=== PATIENT | female | born 1990 | race Caucasian/White ===

== ENCOUNTER 2023-04-09 11:12 | Inpatient (IN) ==
[2023-04-09] MEDS ORDERED: SODIUM CHLORIDE 0.9% 1000ML 1,000 ML IV SCH (11:45)
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
[2023-04-09 12:02] LABS: Basophils # (auto) 0.06 K/uL (0-0.2); Eosinophils # (auto) 0.19 K/uL (0-0.50); Eosinophils % (auto) 3.3 %; Hematocrit (blood only) 38.8 % (37.0-47.0); Hemoglobin 12.9 g/dl (12.0-16.0); Immature Granulocytes # (auto) 0.01 K/uL (0.01-0.20); Immature Granulocytes % (auto) 0.2 %; Lymphocytes # (auto) 1.13 K/uL (1.2-3.4); Lymphocytes % (auto) 19.5 %; Mean Corpuscular Hgb Conc 33.2 g/dL (32.0-36.0); Mean Corpuscular Volume 90.2 fL (80.0-100.0); Mean Platelet Volume 9.5 fL (9.4-12.4); Monocytes # (auto) 0.54 K/uL (0.11-0.59); Monocytes % (auto) 9.3 %; Neutrophils # (auto) 3.87 K/uL (1.40-6.50); Neutrophils % (auto) 66.7 %; Platelet Count 368 K/uL (130-400); RDW Coefficient of Variation 12.4 % (11.5-14.5); RDW Standard Deviation 40.7 fL (36.4-46.3)
[2023-04-09 12:06] LABS: iSTAT Creatinine 0.6 mg/dl (0.6-1.3); iSTAT Hemoglobin 13.6 g/dl (12.0-16.0); iSTAT Ionized Calcium 1.19 mmol/l (1.12-1.32); iSTAT Potassium 4.1 mmol/L (3.3-5.0)
[2023-04-09 12:19] LABS: Albumin Globulin Ratio 1.3 (0.9-2); Albumin Level 4.2 gm/dl (3.4-5.0); BUN Creatinine Ratio 13.4 (10-20); Bilirubin,Total 0.3 mg/dl (0.2-1.0); Creatinine Clr Calc Pharmacy 115.9 ml/min; Est GFR (African American) 133.9 ml/min; Est GFR (Non-African American) 115.5 ml/min; Globulin 3.2 gm/dl (2.5-4.0); Magnesium 1.9 mg/dl (1.7-2.4); Total Protein 7.4 gm/dl (6.0-8.3)
[2023-04-09 12:25] LABS: Troponin I High Sensitivity 9.2 pg/ml (0-14)
[2023-04-09] MEDS ORDERED: OPTIRAY 320 500ml IV ONE (12:29)
[2023-04-09 12:33] LABS: INR 0.9 (0.9-1.1); Partial Thromboplastin Ratio 0.9; Partial Thromboplastin Time 24.2 Seconds (21.0-31.0); Prothrombin Time 10.2 Seconds (9.0-12.0)
--- NOTE | 2023-04-09 12:54 | CT Scan Report ---
HEAD CT NONCONTRAST CT DOSE: HISTORY: Word finding difficulty. neuro deficit, acute stroke suspected TECHNIQUE: Multiaxial CT images of the head were performed without the use of intravenous contrast. A utomated exposure control was utilized for this study. A dose lowering technique was utilized adheri ng to the principles of ALARA. Comparison: None. Findings: Mild mucosal thickening within the ethmoid air cells and maxillary sinuses. The mastoid air cells are clear. The calvarium and skull base are intact. The ventricles and sulci are within normal limits. There is no mass, hematoma, midline shift, or acute infarct. Impression: No acute intracranial abnormality. ACT 112: Negative or not required by law. Electronically signed by: Randy Parks M.D. 04/09/2023 12:52 PM
--- NOTE | 2023-04-09 12:58 | CT Scan Report ---
HEAD & NECK CTA HISTORY: Word finding difficulty. neuro deficit, acute stroke suspected TECHNIQUE: Multiaxial CT images of the head were performed following the intravenous administration o f contrast to evaluate the major cerebral vessels. Multiaxial CT images of the neck were also perform ed following the intravenous administration of contrast to evaluate the major cervical vessels. Maxim um intensity projection images were also obtained. A dose lowering technique was utilized adhering to the principles of ALARA. COMPARISON: Head CT 04/09/2023. FINDINGS: There is no mass, hematoma, midline shift, or acute infarct. Visualized intracranial internal carotid arteries, distal vertebral arteries, and basilar artery are widely patent. There is no significant s tenosis, occlusion, or aneurysm seen within the bilateral ACAs, MCAs, or hospital staff pharmacist. The major dural venous sinuses are patent. There is a persistent right posterior circulation. The aortic arch and proximal great vessels are widely patent. There is no significant stenosis, occ lusion, or dissection identified within the bilateral common carotid, internal carotid, or vertebral arteries. IMPRESSION: 1. No significant stenosis, occlusion, or aneurysm within the [place]. 2. No significant stenosis, occlusion, or dissection identified within the carotid or vertebral arter ies. ACT 112: Negative or not required by law. Electronically signed by: Randy Parks M.D. 04/09/2023 12:56 PM
--- NOTE | 2023-04-09 12:58 | CT Scan Report ---
HEAD & NECK CTA HISTORY: Word finding difficulty. neuro deficit, acute stroke suspected TECHNIQUE: Multiaxial CT images of the head were performed following the intravenous administration o f contrast to evaluate the major cerebral vessels. Multiaxial CT images of the neck were also perform ed following the intravenous administration of contrast to evaluate the major cervical vessels. Maxim um intensity projection images were also obtained. A dose lowering technique was utilized adhering to the principles of ALARA. COMPARISON: Head CT 04/09/2023. FINDINGS: There is no mass, hematoma, midline shift, or acute infarct. Visualized intracranial internal carotid arteries, distal vertebral arteries, and basilar artery are widely patent. There is no significant s tenosis, occlusion, or aneurysm seen within the bilateral ACAs, MCAs, or naphthol soaping machine operator. The major dural venous sinuses are patent. There is a persistent right posterior circulation. The aortic arch and proximal great vessels are widely patent. There is no significant stenosis, occ lusion, or dissection identified within the bilateral common carotid, internal carotid, or vertebral arteries. IMPRESSION: 1. No significant stenosis, occlusion, or aneurysm within the [place]. 2. No significant stenosis, occlusion, or dissection identified within the carotid or vertebral arter ies. ACT 112: Negative or not required by law. Electronically signed by: Randy Parks M.D. 04/09/2023 12:56 PM
--- NOTE | 2023-04-09 13:43 | History & Physical Report ---
Date of Service April 09, 2023 Assessment & Plan (1) Neurological symptoms: Plan: - Admit to PCU for observation -Initially presented at 9:30 AM with symptoms including dysphagia, with difficulty word finding, inability to comprehend words while reading-lasted for 30 minutes, now resolved - Stroke order set completed, no indication for thrombolytic, question TIA - CT head reviewed and is negative - MRI brain wo contrast ordered - Neurology consulted - PT/OT consults placed - A1c and lipid panel with a.m. 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 There was discussed that she most likely has autoimmune neutropenia however other causes of neutropenia such as congenital and cyclical neutropenia can be considered. With complaints of her having mouth sores can be a component of each. Genetic testing for congenital neutropenia panel which would include ELANE gene is reasonable consideration and will be discussed. -Consult neurology -Consult rheumatology-follows with Dr. Amos as outpatient -WBC stable, have asked the patient to bring in her Neupogen injections from home, due today -Continue Plaquenil 200 mg at bedtime, as per HPI, patient was supposed to be alternating between 204 100 mg, due to difficulty keeping straight dosing, has switched to 200 mg standing dose (4) Anxiety and depression: Plan: - Cont sertraline DVT PPx: - teds, scds, ambulatory with assistance CODE: Full code Dispo: From home, likely to remain in the hospital x 1-2 days A total of 75 minutes were spent with greater than 50% of that time face to face with the patient, personally reviewing all current laboratories, imaging studies, past medication reconciliation, outpatient chart review, and discussion with specialists to collaborate care for the patient with attending. Please see attending documentation for corrections and/or additions. 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 This began this morning upon waking up around 9-9:30 am, where she was unable to say what she wanted to say, and had difficulty understanding her daughter speaking to her this morning, couldn't make sense of words she was reading on her phone, and was mumbling. Patient notes that her symptoms lasted for approximately 30 minutes, and due to slow resolving process, presented to the hospital. She lives at home with her , and 2 children who are ages 4 and 5 who witnessed this event. She reports that within the last week she has felt the onset of a lupus flare happening her previous lupus flares involved increased fatigue and swelling of lymph nodes. She has been going to bed earlier and waking up later for approximately 1 week, as well as has some tonsillar lymphadenopathy bilaterally which is fairly normal for her in regards to her previous lupus flares, as well as a left subclavicular lymphadenopathy. This has been worked up in the past by her beater and pulper feeder, [facility]. She also recently sought out a second opinion at [facility] regarding autoimmune neutropenia. She has been taking her Neupogen injections every other day, and is due for it today as she forgot it yesterday. Patient also notes that she has been taking Plaquenil 200 mg nightly, but previously was prescribed to take 200 alternating with 400 mg tablets in November per her civil attorney. Due to difficulty remembering which dose she took, she has been taking 200 mg at bedtime as a standing dose. CTA head and neck are negative. No acute lab abnormalities. Allergies Allergy/AdvReac Type Severity Reaction Status Date / Time No Known Allergies Allergy Verified 04/09/23 13:17 Home Medications Medication Instructions Recorded Confirmed Type hydroxychloroquine 200 mg tablet 200 mg PO HS 02/01/20 04/09/23 History (Plaquenil) norgestimate 0.25 mg-ethinyl 1 tab PO HS 02/17/22 04/09/23 History estradiol 35 mcg tablet (Sprintec (28)) filgrastim-sndz 300 mcg/0.5 mL 2.5 mcg subcut Q2D 04/09/23 04/09/23 History injection syringe (Zarxio) sertraline 50 mg tablet 50 mg PO HS 04/09/23 04/09/23 History Past Med/Surg History Medical History Anemia Anemia affecting in first trimester Back pain complicating in third trimester Dehydration during GERD (gastroesophageal reflux disease) Neutropenia Supposed to see heme/onc this Tuesday No acute medical problems depression Rib fracture SROM (spontaneous rupture of membranes) Surgical History H/O plastic surgery Facial reconstruction S/P wisdom tooth extraction Family History Father Family history of diabetes mellitus Hypertension Mother Hypertension Denies family history of Ovarian cancer Prostate cancer Myocardial infarction Breast cancer Colorectal cancer Social History Smoking Status: Never smoker Second Hand Exposure: No; Do You Dip or Chew Tobacco: No; Hx Alcohol Use: No Hx Substance Use: No Preferred Language: Cameroonian Communication Ability: Effective Merchandise Support Associate Required: No Beliefs That Will Affect Care: None marital status: Current Living Situation: Spouse and Family Other Information That Helps Us Care for You: No Feels Safe at Home: Yes Safety Concerns: Feels Safe At This Time Assistive Devices: Glasses Review of Systems Review of Systems: Constitutional: No fever, sweats or chills Eyes: No diplopia, no worsening or blurred vision ENT: normal hearing, no trouble swallowing Respiratory: No cough, sputum, dyspnea at rest or on exertion Cardiovascular: No chest pain, tightness or palpitations Abdomen: No pain, nausea, vomiting, diarrhea or constipation Musculoskeletal: No joint pain, calf pain, swelling Neurologic:As per HPI-- currently No weakness, numbness/tingling, or balance problems Psychiatric: No anxiety or depression Skin: No rash or itch Physical Exam Physical Exam: General: awake, alert, no apparent distress Head: Normocephalic, atraumatic ENT: PERRL, EOMI, no pharyngeal exudate, mucous membranes moist, + tonsilar lymphadenopathy bilaterally, + left sided subclavivular lymphadenopathy palpable and slightly tender, no axillary lymphadenopathy Chest: Clear to auscultation, on room air, no adventitious breath sounds Cardiac: Regular rate and rhythm, no murmur, no JVD, normal peripheral pulses, good capillary refill Abdominal: NABS x 4 quadrants, soft, nondistended, nontender to palpation, no rebound or guarding Extremities: Normal inspection, no peripheral edema or erythema, calfs nontender to palpation Psych: Normal mood and affect Neuro: AAO x 3, strength intact bilaterally and rated 5/5, no motor deficits, speech is clear, no peripheral sensory deficits, no focal neurological deficits on exam Results & Data Results & Data Vital Signs (Past 12 Hours) Vital Signs Temp Pulse Resp BP Pulse Ox O2 Del Method 04/09/23 12:39 83 19 04/09/23 12:00 86 21 98 Room Air 04/09/23 12:00 147/97 H 04/09/23 11:50 90 18 99 04/09/23 11:54 91 H 04/09/23 11:25 37.2 C 99 H 18 188/109 H 96 Room Air Laboratory Results 04/09/23 04/09/23 04/09/23 13:54 11:54 11:46 WBC RBC Hgb POC Hgb 13.6 Hct POC Hct 40 MCV MCH MCHC RDW Std Deviation RDW Coeff of Misael Plt Count MPV Immature Gran % (Auto) Neut % (Auto) Lymph % (Auto) Menard % (Auto) Eos % (Auto) Baso % (Auto) Neut # (Auto) Lymph # (Auto) Menard # (Auto) Eos # (Auto) Baso # (Auto) Immature Gran # (Auto) PT INR APTT PTT Ratio POC Sodium 138 Sodium POC Potassium 4.1 Potassium POC Chloride 104 Chloride Carbon Dioxide POC Total CO2 24 Anion Gap POC Anion Gap 14.0 L POC BUN 8 BUN Creatinine POC Creatinine 0.6 Est Cr Clr Drug Dosing Est GFR ( Amer) Est GFR (Non-Af Amer) BUN/Creatinine Ratio Glucose POC Glucose (other) 103 H Calcium POC Ioniz Calcium Beatriz 1.19 Magnesium Total Bilirubin AST ALT Alkaline Phosphatase Troponin I High Sens Total Protein Albumin Globulin Albumin/Globulin Ratio HCG, Quant < 1 SARS-CoV-2, RNA, NAAT NEGATIVE 04/09/23 04/09/23 04/09/23 11:46 11:46 11:46 WBC 5.80 RBC 4.30 Hgb 12.9 POC Hgb Hct 38.8 POC Hct MCV 90.2 MCH 30.0 MCHC 33.2 RDW Std Deviation 40.7 RDW Coeff of Misael 12.4 Plt Count 368 MPV 9.5 Immature Gran % (Auto) 0.2 Neut % (Auto) 66.7 Lymph % (Auto) 19.5 Menard % (Auto) 9.3 Eos % (Auto) 3.3 Baso % (Auto) 1.0 Neut # (Auto) 3.87 Lymph # (Auto) 1.13 L Menard # (Auto) 0.54 Eos # (Auto) 0.19 Baso # (Auto) 0.06 Immature Gran # (Auto) 0.01 PT 10.2 INR 0.9 APTT 24.2 PTT Ratio 0.9 POC Sodium Sodium 136 POC Potassium Potassium 4.0 POC Chloride Chloride 105 Carbon Dioxide 23 POC Total CO2 Anion Gap 8 POC Anion Gap POC BUN BUN 9 Creatinine 0.67 POC Creatinine Est Cr Clr Drug Dosing 115.9 Est GFR ( Amer) 133.9 Est GFR (Non-Af Amer) 115.5 BUN/Creatinine Ratio 13.4 Glucose 96 POC Glucose (other) Calcium 9.0 POC Ioniz Calcium Beatriz Magnesium 1.9 Total Bilirubin 0.3 AST 14 ALT 19 Alkaline Phosphatase 52 Troponin I High Sens 9.2 Total Protein 7.4 Albumin 4.2 Globulin 3.2 Albumin/Globulin Ratio 1.3 HCG, Quant SARS-CoV-2, RNA, NAAT Diagnostic Findings Head CT 04/09/23 11:[address] DOSE: HISTORY: Word finding difficulty. neuro deficit, acute stroke suspected TECHNIQUE: Multiaxial CT images of the head were performed without the use of intravenous contrast. Automated exposure control was utilized for this study. A dose lowering technique was utilized adhering to the principles of ALARA. Comparison: None. Findings: Mild mucosal thickening within the ethmoid air cells and maxillary sinuses. The mastoid air cells are clear. The calvarium and skull base are intact. The ventricles and sulci are within normal limits. There is no mass, hematoma, midline shift, or acute infarct. Impression: No acute intracranial abnormality. ACT 112: Negative or not required by law. Electronically signed by: Randy Parks M.D. 04/09/2023 12:52 PM Head CTA 04/09/23 11:44 HEAD & NECK CTA HISTORY: Word finding difficulty. neuro deficit, acute stroke suspected TECHNIQUE: Multiaxial CT images of the head were performed following the in travenous administration of contrast to evaluate the major cerebral vessels. Multiaxial CT images of the neck were also performed following the intravenous administration of contrast to evaluate the major cervical vessels. Maximum intensity projection images were also obtained. A dose lowering technique was utilized adhering to the principles of ALARA. COMPARISON: Head CT 04/09/2023. FINDINGS: There is no mass, hematoma, midline shift, or acute infarct. Visualized intracranial internal carotid arteries, distal vertebral arteries, and basilar artery are widely patent. There is no significant stenosis, occlusion, or aneurysm seen within the bilateral ACAs, MCAs, or tire setter. The major dural venous sinuses are patent. There is a persistent right posterior circulation. The aortic arch and proximal great vessels are widely patent. There is no significant stenosis, occlusion, or dissection identified within the bilateral common carotid, internal carotid, or vertebral arteries. IMPRESSION: 1. No significant stenosis, occlusion, or aneurysm within the [place]. 2. No significant stenosis, occlusion, or dissection identified within the carotid or vertebral arteries. ACT 112: Negative or not required by law. Electronically signed by: Randy Parks M.D. 04/09/2023 12:56 PM Neck CTA 04/09/23 11:44 HEAD & NECK CTA HISTORY: Word finding difficulty. neuro deficit, acute stroke suspected TECHNIQUE: Multiaxial CT images of the head were performed following the intravenous administration of contrast to evaluate the major cerebral vessels. Multiaxial CT images of the neck were also performed following the intravenous administration of contrast to evaluate the major cervical vessels. Maximum intensity projection images were also obtained. A dose lowering technique was utilized adhering to the principles of ALARA. COMPARISON: Head CT 04/09/2023. FINDINGS: There is no mass, hematoma, midline shift, or acute infarct. Visualized intracranial internal carotid arteries, distal vertebral arteries, and basilar artery are widely patent. There is no significant stenosis, occlusion, or aneurysm seen within the bilateral ACAs, MCAs, or tire setter. The major dural venous sinuses are patent. There is a persistent right posterior circulation. The aortic arch and proximal great vessels are widely patent. There is no significant stenosis, occlusion, or dissection identified within the bilateral common carotid, internal carotid, or vertebral arteries. IMPRESSION: 1. No significant stenosis, occlusion, or aneurysm within the [place]. 2. No significant stenosis, occlusion, or dissection identified within the carotid or vertebral arteries. ACT 112: Negative or not required by law. Electronically signed by: Randy Parks M.D. 04/09/2023 12:56 PM Code Status & VTE Plan Code Status Full code Supervising Physician Co-Signing Physician Notes Pt seen and examined by myself, Shanna Og MD on the day of service. Care was coordinated with Marsha Casiano PA-C. Please refer to her note for additional information. Pt is a 32yoF with a PMHx significant for SLE and on OCPs presenting with an acute episode of aphasia, currently resolved. Head CT, CTA and neck CTA with no acute cause, MRI pending. Neurology and Rheumatology consults: appreciate recs concerning a neurological cause such as TIA vs. a lupus/rheumatological cause. Tele monitoring, stroke workup Otherwise as above.
[2023-04-09] MEDS ORDERED: PHARMACIST DISCHARGE MED REC CONSULT PRN (15:49)
[2023-04-09] MEDS ORDERED: ONDANSETRON INJ 2 MG/ML 2 ML VIAL IV PRN (15:49)
[2023-04-09] MEDS ORDERED: ACETAMINOPHEN 325 MG TAB PO PRN (15:49)
--- NOTE | 2023-04-09 16:21 | Electrocardiogram Report ---
Test Reason : Blood Pressure : / mmHG Vent. Rate : 090 BPM Atrial Rate : 090 BPM P-R Int : 118 ms QRS Dur : 092 ms QT Int : 380 ms P-R-T Axes : 049 -04 018 degrees QTc Int : 464 ms Normal sinus rhythm Minimal voltage criteria for LVH, may be normal variant Borderline ECG When compared with ECG of 22-NOV-2022 13:13, No significant change was found Confirmed by Lirbado Oneil ([id number]) on 04/09/2023 4:21:23 PM Referred By: REFERRED SELF Confirmed By:Krishna Oneil
--- NOTE | 2023-04-09 17:38 | Magnetic Resonance Report ---
Brain MRI WITHOUT CONTRAST HISTORY: Aphasia.. eval for cva TECHNIQUE: Multiplanar multisequence MRI of the brain was performed without the use of contrast. COMPARISON STUDY: Head CT 04/09/2023 FINDINGS: There is a 5 mm focus of restricted diffusion within the left posterior temporal lobe on im age 12. Therefore, this is consistent with a punctate acute infarct. The midline structures are intac t. Otherwise, the remaining brain parenchyma demonstrates a normal signal intensity with no evidence for a mass, hematoma, or midline shift. The ventricles are normal in size. No evidence for hydrocepha laurie. The orbits are unremarkable. Mild mucosal thickening within the paranasal sinuses. The mastoid a ir cells are clear. The major vascular flow-voids at the skull base are well-maintained. IMPRESSION: There is a 5 mm focus of restricted diffusion within the left posterior temporal lobe consistent with a punctate acute infarct. ACT 112: Negative or not required by law. Electronically signed by: Randy Parks M.D. 04/09/2023 5:36 PM
[2023-04-09] MEDS ORDERED: ASPIRIN 81 MG CHEW PO STA (19:33)
[2023-04-09] MEDS: HYDROXYCHLOROQUINE SULFATE 200 MG TAB PO SCH (20:10)
[2023-04-09] MEDS: SERTRALINE HCL 50 MG TABLET PO SCH (20:10)
[2023-04-09] MEDS: ATORVASTATIN 40 MG TAB PO SCH (21:06)
--- NOTE | 2023-04-10 01:20 | Ultrasound Report ---
Exam(s): US VENOUS LEFT UPPER EXTREMITY EXAM: US Duplex Left Upper Extremity Veins CLINICAL HISTORY: Reason for exam: R/o DVT, lymphadenopathy, new stroke. TECHNIQUE: Real-time duplex ultrasound scan of the left upper extremity veins integrating B-mode two-dimensional vascular structure, Doppler spectral analysis, color flow Doppler imaging and compression. COMPARISON: No relevant prior studies available. FINDINGS: Deep veins: Unremarkable. No DVT in the internal jugular, subclavian, axillary, or brachial veins. The veins demonstrate normal color flow, are normally compressible, with normal phasic flow and/or augmentation response. Superficial veins: Unremarkable. No thrombus in the visualized basilic and cephalic veins. Soft tissues: No acute findings. IMPRESSION: Normal left upper extremity duplex venous ultrasound. Electronically signed by: Alec Zapien MD 04/10/23 01:19 AM
[2023-04-10 07:26] LABS: Chol HDL Ratio 3.6 (0-5)
[2023-04-10] MEDS ORDERED: SODIUM CHLORIDE 0.9% 1000ML 1,000 ML IV SCH (08:00)
[2023-04-10 08:43] LABS: Estimated Average Glucose 117 mg/dl; Hemoglobin A1C 5.7 % (4.5-5.6)
[2023-04-10 09:23] LABS: Hematocrit (blood only) 36.2 % (37.0-47.0); Hemoglobin 11.7 g/dl (12.0-16.0); Mean Corpuscular Hemoglobin 29.5 pg (25.0-34.0); Mean Corpuscular Hgb Conc 32.3 g/dL (32.0-36.0); Mean Corpuscular Volume 91.2 fL (80.0-100.0); Platelet Count 314 K/uL (130-400); RDW Coefficient of Variation 12.6 % (11.5-14.5); RDW Standard Deviation 41.5 fL (36.4-46.3); Red Blood Count 3.97 M/uL (4.20-5.40); White Blood Count 2.72 K/ul (4.8-10.8)
[2023-04-10 09:33] LABS: BUN Creatinine Ratio 13.7 (10-20); Calcium 9.2 mg/dl (8.6-10.3); Creatinine Clr Calc Pharmacy 107.9 ml/min; Est GFR (African American) 125.4 ml/min; Est GFR (Non-African American) 108.2 ml/min; Potassium 4.1 mmol/L (3.5-5.1)
[2023-04-10 09:55] LABS: Basophils # (auto) 0.03 K/uL (0-0.2); Basophils % (auto) 1.1 %; Eosinophils # (auto) 0.27 K/uL (0-0.50); Eosinophils % (auto) 9.9 %; Immature Granulocytes # (auto) 0.01 K/uL (0.01-0.20); Immature Granulocytes % (auto) 0.4 %; Lymphocytes # (auto) 1.33 K/uL (1.2-3.4); Lymphocytes % (auto) 48.9 %; Monocytes # (auto) 0.58 K/uL (0.11-0.59); Monocytes % (auto) 21.3 %; Neutrophils % (auto) 18.4 %
[2023-04-10] MEDS: ASPIRIN 81 MG ECTAB PO SCH (10:40)
[2023-04-10] MEDS: ATORVASTATIN 40 MG TAB PO SCH (10:41)
--- NOTE | 2023-04-10 13:16 | Rheumatology Consultation ---
Rheumatology Consultation DOS April 10, [address] Knight Attending Physician Dr Knight Reason for Consultation stroke, lupus Assessment & Plan (1) CVA (cerebral vascular accident): presented with acute stoke that resolved. stroke demonstrated on MRI. ? stroke related to control vs lupus. clotting studies pending. continue plaquenil. on antiplatelet therapy. no need for steroids. (2) Lupus: see above (3) Neutropenia: as per hematology Plan 1. stop estrogen based control - needs to get progesterone only - she has already contacted her ETHNOGRAPHIC MATERIALS CONSERVATOR about the change 2. awaiting clotting studies 3. on stroke management as per hospital team 4. continue plaquenil 5. I will arrange outpatient follow up - no need to put rheum follow up as a dicharge order 6. Thank you for the consult and involving me in this patient's care History of Present Illness Reason for Consultation: stroke, Lupus Requesting Physician: Dr Knight Attending Physician: Baljinder Knight MD History of Present Illness Maty is a known patient to [facility] with history of neutropenia and Lupus. she was originally diagnosed by Dr Mariscal mainly based on neutropenia, fatigue, elevated EDGAR and swollen lymph nodes. she followed with Dr Mariscal for some time then switched to [facility] and then back to us. she was last seen in October 2022 and was stable. she is on plaquenil 200mg daily - my PA Jennifer Madyson increased to 300mg (alternating 200 with 400) but she could not always remember to do that. she is here because yesterday am she woke up and was not able to speak correctly, had trouble reading and understanding words. this was witnessed by her and children. the episode lasted about 30 min. she reports for the last week she was dealing with a lupus flare which for her consists of fatigue and swollen lymph nodes. she has noted recently that since starting neupogen for her neutropenia that her injections help resolve her lupus flares. she is now on an agent every other day and this week it did not seem to help. she denies any skin rashes, pleurisy, pericadritis, inflammatory arthritis, GI, issues. she came to [facility] yesterday - CT was normal but MRI showed a 5mm left temporal punctate infarct. she is now on aspirin. was noted that she was on control that contained estrogen. she feels good today. her wbc and neutrophils decreased today and she just took her neupogen prior to me coming into the room. she has several clotting labs pending. she denies any hematuria. her kidney and liver studies were good. she is hoping to go home soon. she had missed her last follow up with us do to illness. she reports her lymph nodes feel normal now. she has a history of mouth ulcers but they resolved with starting neupogen. she had a 2d echo that looked good. doppler study - no clots. I was contacted yesterday about presentation - no concern for technical associate lupus - this is very uncommon. Allergies Allergy/AdvReac Type Severity Reaction Status Date / Time No Known Allergies Allergy Verified 04/09/23 13:17 Home Medications Medication Instructions Recorded Confirmed Type hydroxychloroquine 200 mg tablet 200 mg PO HS 02/01/20 04/09/23 History (Plaquenil) norgestimate 0.25 mg-ethinyl 1 tab PO HS 02/17/22 04/09/23 History estradiol 35 mcg tablet (Sprintec (28)) filgrastim-sndz 300 mcg/0.5 mL 2.5 mcg subcut Q2D 04/09/23 04/09/23 History injection syringe (Zarxio) sertraline 50 mg tablet 50 mg PO HS 04/09/23 04/09/23 History Patient History Medical History Anemia Anemia affecting in first trimester Back pain complicating in third trimester Dehydration during GERD (gastroesophageal reflux disease) Neutropenia Supposed to see heme/onc this Tuesday No acute medical problems depression Rib fracture SROM (spontaneous rupture of membranes) Surgical History H/O plastic surgery Facial reconstruction S/P wisdom tooth extraction Family History Father Family history of diabetes mellitus Hypertension Mother Hypertension Denies family history of Ovarian cancer Prostate cancer Myocardial infarction Breast cancer Colorectal cancer Social History Smoking Status: Never smoker Second Hand Exposure: No; Do You Dip or Chew Tobacco: No; Hx Alcohol Use: No Hx Substance Use: No Preferred Language: Nepalese Communication Ability: Effective Traveling Freight Agent Required: No Beliefs That Will Affect Care: None marital status: Current Living Situation: Spouse and Family Other Information That Helps Us Care for You: No Feels Safe at Home: Yes Safety Concerns: Feels Safe At This Time Assistive Devices: Glasses Review of Systems Constitutional: none Eyes: normal Ear, Nose, Mouth, Throat: history of mouth ulcers Respiratory: normal Cardiovascular: Additional Comments: normal Gastrointestinal: normal Genitourinary: normal Musculoskeletal: normal Neurologic: see HPI Physical Exam Constitutional: normal AAOx3 Eyes: PERRL, no conjunctival erythema ENMT: normal, no dryness or ulcers Neck: no adenopathy Respiratory: CTA b/l no wheezes Cardiovascular: reg, + s1 and s2 no murmurs Gastrointestinal (Abdomen): soft NT ND + BS Musculoskeletal: no synovitis Skin: excoriations on her face from picking Results & Data Vital Signs (Past 12 Hours) Vital Signs Temp Pulse Pulse Resp BP BP Pulse Ox 04/10/23 08:00 54 L 04/10/23 11:22 37.0 C 70 16 146/95 H 97 04/10/23 07:26 36.9 C 71 16 135/78 99 04/10/23 03:12 36.8 C 66 18 135/98 98 O2 Del Method 04/10/23 08:00 04/10/23 11:22 Room Air 04/10/23 07:26 Room Air 04/10/23 03:12 Room Air Laboratory Results reviewed Diagnostic Findings reviewed
--- NOTE | 2023-04-10 14:01 | Hospitalist Progress Note ---
Date of Service April 10, 2023 Assessment & Plan (1) CVA (cerebral vascular accident): Plan: per admitting hospitalist notes with addendum: - Admit to PCU for observation -Initially presented at 9:30 AM with symptoms including dysphagia, with difficulty word finding, inability to comprehend words while reading-lasted for 30 minutes, now resolved - Stroke order set completed, no indication for thrombolytic, question TIA - CT head reviewed and is negative - MRI brain wo contrast ordered - Neurology consulted - PT/OT consults placed - A1c and lipid panel with a.m. labs -Allow diet as neurological symptoms have completely resolved at this point 04/10 aphasia resolved Brain MRI:There is a 5 mm focus of restricted diffusion within the left posterior temporal lobe consistent with a punctate acute infarct. 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 There was discussed that she most likely has autoimmune neutropenia however other causes of neutropenia such as congenital and cyclical neutropenia can be considered. With complaints of her having mouth sores can be a component of each. Genetic testing for congenital neutropenia panel which would include ELANE gene is reasonable consideration and will be discussed. -Consult neurology -Consult rheumatology-follows with Dr. Amos as outpatient -WBC stable, have asked the patient to bring in her Neupogen injections from home, due today -Continue Plaquenil 200 mg at bedtime, as per HPI, patient was supposed to be alternating between 204 100 mg, due to difficulty keeping straight dosing, has switched to 200 mg standing dose 04/10 ANC 0.5 Neuopogen self-administered by patient today (4) Anxiety and depression: Plan: - Cont sertraline DVT PPx: - teds, scds, ambulatory with assistance CODE: Full code Dispo: anticipate d/c home when medically stable plan of care discussed with patient in detail and at length all questions answered she is understanding, agreeable, comfortable with the plan of care Admission and Anticipated Discharge Date Admission Date: April 10, 2023 Subjective ff up for acute cva, etc seen resting in bed, sitting up alert, comfortable, very pleasant states she feels better overall no recurrence of aphasia no new neurologic symptoms no chest pain, dyspnea, palpitations, dizziness no other symptoms Review of Systems Review of Systems: all noted and negative except for above Physical Exam Physical Exam: General- oriented x 3, not in distress, speaks in sentences with no effort or accessory muscle use Head- atraumatic Eyes- PERRL, EOMI, anicteric ENT- oropharynx clear Neck- supple, no JVD, no adenopathy, no thyromegaly; carotids +2/2, no bruits appreciated Lungs- clear to auscultation bilaterally, no rales/wheezes Heart- normal rate, regular rhythm; no murmur, no gallop, no rub appreciated Abdomen- normal bowel sounds, nondistended, soft, nontender, no masses or hepatosplenomegaly Extremities- no pretibial edema, no calf tenderness; peripheral pulses intact Neuro- alert, oriented x 3; CN 2-12 grossly intact; motor 5/5 bilaterally;sensation 100% on all extremities; no other gross focal neurologic deficits Skin- warm & dry Results & Data Results & Data Vital Signs (Past 12 Hours) Vital Signs Temp Pulse Pulse Resp BP BP Pulse Ox 04/10/23 08:00 54 L 04/10/23 11:22 37.0 C 70 16 146/95 H 97 04/10/23 07:26 36.9 C 71 16 135/78 99 04/10/23 03:12 36.8 C 66 18 135/98 98 O2 Del Method 04/10/23 08:00 04/10/23 11:22 Room Air 04/10/23 07:26 Room Air 04/10/23 03:12 Room Air all noted and reviewed including below
--- NOTE | 2023-04-10 14:14 | Consultation Report ---
NEUROLOGY CONSULTATION NOTE DATE OF CONSULTATION: 04/10/2023. CHIEF COMPLAINT: Word finding difficulty/ speech difficulty HISTORY OF PRESENT ILLNESS: This is a 32-year-old female with history of lupus and a history of autoimmune neutropenia as well as depression and anxiety admitted to the hospital for acute neurological symptoms consisting of difficulty understanding/speaking. Symptoms lasted roughly 30 minutes with slow recovery. She does report that within the last week, she was concerned regarding a lupus flare as these typically involve increased fatigue as well as swelling of her lymph nodes. She does follow with hematology and is seeking a second opinion regarding autoimmune neutropenia. She has been taking Neupogen injections every other day, although she did forget a dose 2 days ago. She also takes Plaquenil per discretion of Dr. Franklin, her e tailer. Upon arrival, a CT of the head and neck was performed with no acute intracranial abnormality. The patient was admitted for observation. There was a discussion with her e tailer, who was concerned for possible TIA. She denies history of stroke or similar symptoms. Not on ASA at home. She is on estrogen containing control. Denies smoking. No family history of stroke. ALLERGIES: No known allergies. HOME MEDICATIONS: Plaquenil, control, sertraline, and Zarxio. PAST MEDICAL HISTORY: Anemia, back pain, GERD, neutropenia, and lupus. PAST SURGICAL HISTORY: Facial reconstruction and wisdom teeth extraction. FAMILY HISTORY: Hypertension, diabetes, prostate cancer, and myocardial infarction. SOCIAL HISTORY: Nonsmoker. She is . No heavy alcohol use. REVIEW OF SYSTEMS: Positive for word finding difficulty, difficulty speaking, and mumbled speech. PHYSICAL EXAMINATION: VITAL SIGNS: Blood pressure is 135/78, pulse is 71, respiratory rate is 16, and temperature is 36.9. GENERAL: Awake, alert, and oriented to person, place, and time. Appears in no acute distress. HEENT: Head is atraumatic, normocephalic. Eyes midline. Extraocular muscles intact. Tongue midline. NEUROLOGIC: Speech is clear. No aphasia. No involuntary movements. Sensation is intact to light touch. Muscle strength is 5/5. DIAGNOSTIC TESTING AND LABORATORY VALUES: WBC 2.72, hemoglobin 11.7, and absolute neutrophils 0.50. Sodium 138, potassium 4.1, and chloride 105. IMAGING: MRI of the brain: A 5-mm focus of restricted diffusion within the left posterior temporal lobe consistent with a punctate acute infarct. The midline structures are intact. No evidence of mass or hemorrhage. Extremity duplex ultrasound showed normal left upper extremity duplex. ASSESSMENT AND PLAN: A 32-year-old female admitted with transient aphasia, both receptive and expressive due to a small embolic-appearing left middle cerebral artery ischemic stroke. This was confirmed on diffusion weighted imaging on her MRI. CTA head and neck Negative. No dissection or stenosis. On examine she is back to baseline with no aphasia. Recommend starting aspirin and Plavix 75 mg daily for 21 days and then aspirin 81 mg daily. We would recommend she stop control her estrogen containing control. Agree with starting Liptor 40 mg daily. .We will also recommend she have a hypercoagulable workup, which can be arranged as an outpatient. I will also arrange a zio patch. May consider outpatient TIFFANIE as well. We will arrange for outpatient neurology followup in 8 weeks. Job ID: [id number] CASTILLO
[2023-04-10] MEDS: CLOPIDOGREL BISULFATE 75 MG TAB PO SCH (17:16)
[2023-04-10] MEDS: HYDROXYCHLOROQUINE SULFATE 200 MG TAB PO SCH (20:50)
[2023-04-10] MEDS: SERTRALINE HCL 50 MG TABLET PO SCH (20:50)
[2023-04-11 07:53] LABS: Basophils # (auto) 0.05 K/uL (0-0.2); Basophils % (auto) 1.2 %; Eosinophils # (auto) 0.23 K/uL (0-0.50); Eosinophils % (auto) 5.5 %; Hematocrit (blood only) 38.8 % (37.0-47.0); Hemoglobin 12.8 g/dl (12.0-16.0); Immature Granulocytes # (auto) 0.01 K/uL (0.01-0.20); Immature Granulocytes % (auto) 0.2 %; Lymphocytes # (auto) 1.05 K/uL (1.2-3.4); Lymphocytes % (auto) 25.2 %; Mean Corpuscular Hemoglobin 30.3 pg (25.0-34.0); Mean Corpuscular Volume 91.9 fL (80.0-100.0); Mean Platelet Volume 9.7 fL (9.4-12.4); Monocytes # (auto) 0.68 K/uL (0.11-0.59); Monocytes % (auto) 16.3 %; Neutrophils # (auto) 2.14 K/uL (1.40-6.50); Neutrophils % (auto) 51.6 %; Platelet Count 263 K/uL (130-400); RDW Coefficient of Variation 12.5 % (11.5-14.5); RDW Standard Deviation 41.4 fL (36.4-46.3); Red Blood Count 4.22 M/uL (4.20-5.40); White Blood Count 4.16 K/ul (4.8-10.8)
[2023-04-11 08:43] LABS: BUN Creatinine Ratio 13.3 (10-20); Calcium 9.2 mg/dl (8.6-10.3); Creatinine Clr Calc Pharmacy 132.8 ml/min; Est GFR (African American) 138.8 ml/min; Est GFR (Non-African American) 119.8 ml/min; Potassium 4.1 mmol/L (3.5-5.1)
[2023-04-11] MEDS: ATORVASTATIN 40 MG TAB PO SCH (09:16)
[2023-04-11] MEDS: ASPIRIN 81 MG ECTAB PO SCH (09:16)
[2023-04-11] MEDS: CLOPIDOGREL BISULFATE 75 MG TAB PO SCH (09:16)
[2023-04-11] MEDS ORDERED: STROKE PATIENT DISCHARGE STA (10:08)
--- NOTE | 2023-04-11 10:18 | Pharmacy Report ---
- Date of Service April 11, 2023 - Pharmacy CVA/TIA Medication Review Medications to Prevent Stroke handout has been added to the patients discharge packet. Antiplatelet(s) * Aspirin 81 mg PO daily for life + Plavix 75 mg PO daily for 21 days Cholesterol * High intensity statin: atorvastatin 40 mg daily DVT Prophylaxis * No DVT prophylaxis ordered. Will reach out to provider to recommend SCDs at this time. Therapeutic Anticoagulation * No history of Afib/Aflutter noted Type 2 Diabetes * Patient does not have T2DM
--- NOTE | 2023-04-11 16:04 | Hospitalist Progress Note ---
Date of Service April 11, 2023 Assessment & Plan (1) CVA (cerebral vascular accident): Plan: per admitting hospitalist notes with addendum: - Admit to PCU for observation -Initially presented at 9:30 AM with symptoms including dysphagia, with difficulty word finding, inability to comprehend words while reading-lasted for 30 minutes, now resolved - Stroke order set completed, no indication for thrombolytic, question TIA - CT head reviewed and is negative - MRI brain wo contrast ordered - Neurology consulted - PT/OT consults placed - A1c and lipid panel with a.m. labs -Allow diet as neurological symptoms have completely resolved at this point 04/11 aphasia resolved Brain MRI:There is a 5 mm focus of restricted diffusion within the left posterior temporal lobe consistent with a punctate acute infarct. CTA head and nec: unrevealing Echo: no interatrial shunt, no evidence of ASD, resolution not adequate to exclude the presence of a small PFO Neuro consulted, recommending: - felt to be embolic appearing left middle cerebral artery ischemic stroke Aspirin 81 mg and Plavix 75 mg daily x3 weeks, then aspirin only Lipitor 40 mg p.o. 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 There was discussed that she most likely has autoimmune neutropenia however other causes of neutropenia such as congenital and cyclical neutropenia can be considered. With complaints of her having mouth sores can be a component of each. Genetic testing for congenital neutropenia panel which would include ELANE gene is reasonable consideration and will be discussed. -Consult neurology -Consult rheumatology-follows with Dr. Amos as outpatient -WBC stable, have asked the patient to bring in her Neupogen injections from home, due today -Continue Plaquenil 200 mg at bedtime, as per HPI, patient was supposed to be alternating between 204 100 mg, due to difficulty keeping straight dosing, has switched to 200 mg standing dose 04/11 Neupogen self-administered by patient today Outpatient follow-up (4) Anxiety and depression: Plan: - Cont sertraline DVT PPx: - teds, scds, ambulatory with assistance CODE: Full code Dispo: anticipate d/c home when medically stable plan of care discussed with patient and her in detail and at length all questions answered They are understanding, agreeable, comfortable with the plan of care Admission and Anticipated Discharge Date Admission Date: April 10, 2023 Subjective ff up for acute cva, etc seen resting in bed, comfortable in good spirits no recurrence of neuro symptoms no neuro symptoms no chest pain, dyspnea, palpitations, dizziness no other symptoms states she is ready for dc today Review of Systems Review of Systems: all noted and negative except for above Physical Exam Physical Exam: General- oriented x 3, not in distress, speaks in sentences with no effort or accessory muscle use Eyes- anicteric Neck- no JVD Lungs- clear breath sounds bilaterally, no rales/wheezes Heart- normal rate, regular rhythm; no murmurs Abdomen- normal bowel sounds, nondistended, soft, nontender Extremities- no pretibial edema, no calf tenderness Neuro- alert, oriented x 3; no gross focal neurologic deficits Skin- warm & dry Results & Data Results & Data Vital Signs (Past 12 Hours) Vital Signs Temp Pulse Pulse Resp BP BP Pulse Ox 04/11/23 10:59 37.0 C 77 17 128/83 127/77 99 04/11/23 08:10 64 04/11/23 07:47 37.0 C 77 17 127/77 99 O2 Del Method 04/11/23 10:59 04/11/23 08:10 04/11/23 07:47 Room Air all noted and reviewed including below
--- NOTE | 2023-04-11 16:06 | Discharge Summary ---
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 This began this morning upon waking up around 9-9:30 am, where she was unable to say what she wanted to say, and had difficulty understanding her daughter speaking to her this morning, couldn't make sense of words she was reading on her phone, and was mumbling. Patient notes that her symptoms lasted for approximately 30 minutes, and due to slow resolving process, presented to the hospital. She lives at home with her , and 2 children who are ages 4 and 5 who witnessed this event. She reports that within the last week she has felt the onset of a lupus flare happening her previous lupus flares involved increased fatigue and swelling of lymph nodes. She has been going to bed earlier and waking up later for approximately 1 week, as well as has some tonsillar lymphadenopathy bilaterally which is fairly normal for her in regards to her previous lupus flares, as well as a left subclavicular lymphadenopathy. This has been worked up in the past by her appellate court clerk, [facility]. She also recently sought out a second opinion at [facility] regarding autoimmune neutropenia. She has been taking her Neupogen injections every other day, and is due for it today as she forgot it yesterday. Patient also notes that she has been taking Plaquenil 200 mg nightly, but previously was prescribed to take 200 alternating with 400 mg tablets in November per her publication specialist. Due to difficulty remembering which dose she took, she has been taking 200 mg at bedtime as a standing dose. CTA head and neck are negative. No acute lab abnormalities. Admission Exam Per Admitting Provider General: awake, alert, no apparent distress Head: Normocephalic, atraumatic ENT: PERRL, EOMI, no pharyngeal exudate, mucous membranes moist, + tonsilar lymphadenopathy bilaterally, + left sided subclavivular lymphadenopathy palpable and slightly tender, no axillary lymphadenopathy Chest: Clear to auscultation, on room air, no adventitious breath sounds Cardiac: Regular rate and rhythm, no murmur, no JVD, normal peripheral pulses, good capillary refill Abdominal: NABS x 4 quadrants, soft, nondistended, nontender to palpation, no rebound or guarding Extremities: Normal inspection, no peripheral edema or erythema, calfs nontender to palpation Psych: Normal mood and affect Neuro: AAO x 3, strength intact bilaterally and rated 5/5, no motor deficits, speech is clear, no peripheral sensory deficits, no focal neurological deficits on exam Principal Dx & Hospital Course #1 = Principal Diagnosis (1) CVA (cerebral vascular accident): per admitting hospitalist notes with addendum: - Admit to PCU for observation -Initially presented at 9:30 AM with symptoms including dysphagia, with difficulty word finding, inability to comprehend words while reading-lasted for 30 minutes, now resolved - Stroke order set completed, no indication for thrombolytic, question TIA - CT head reviewed and is negative - MRI brain wo contrast ordered - Neurology consulted - PT/OT consults placed - A1c and lipid panel with a.m. labs -Allow diet as neurological symptoms have completely resolved at this point 04/11 aphasia resolved Brain MRI:There is a 5 mm focus of restricted diffusion within the left posterior temporal lobe consistent with a punctate acute infarct. CTA head and nec: unrevealing Echo: no interatrial shunt, no evidence of ASD, resolution not adequate to exclude the presence of a small PFO Neuro consulted, recommending: - felt to be embolic appearing left middle cere bral artery ischemic stroke Aspirin 81 mg and Plavix 75 mg daily x3 weeks, then aspirin only Lipitor 40 mg p.o. 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 There was discussed that she most likely has autoimmune neutropenia however other causes of neutropenia such as congenital and cyclical neutropenia can be considered. With complaints of her having mouth sores can be a component of each. Genetic testing for congenital neutropenia panel which would include ELANE gene is reasonable consideration and will be discussed. -Consult neurology -Consult rheumatology-follows with Dr. Amos as outpatient -WBC stable, have asked the patient to bring in her Neupogen injections from home, due today -Continue Plaquenil 200 mg at bedtime, as per HPI, patient was supposed to be alternating between 204 100 mg, due to difficulty keeping straight dosing, has switched to 200 mg standing dose 04/11 Neupogen self-administered by patient today Outpatient follow-up (4) Anxiety and depression: - Cont sertraline DVT PPx: - teds, scds, ambulatory with assistance CODE: Full code Dispo: anticipate d/c home when medically stable plan of care discussed with patient and her in detail and at length all questions answered They are understanding, agreeable, comfortable with the plan of care Discharge Exam General- oriented x 3, not in distress, speaks in sentences with no effort or accessory muscle use Eyes- anicteric Neck- no JVD Lungs- clear breath sounds bilaterally, no rales/wheezes Heart- normal rate, regular rhythm; no murmurs Abdomen- normal bowel sounds, nondistended, soft, nontender Extremities- no pretibial edema, no calf tenderness Neuro- alert, oriented x 3; no gross focal neurologic deficits Skin- warm & dry Updated Medication List Medication Instructions Recorded Confirmed Type hydroxychloroquine 200 mg tablet 200 mg PO HS 02/01/20 04/09/23 History (Plaquenil) filgrastim-sndz 300 mcg/0.5 mL 2.5 mcg subcut Q2D 04/09/23 04/09/23 History injection syringe (Zarxio) sertraline 50 mg tablet 50 mg PO HS 04/09/23 04/09/23 History aspirin 81 mg tablet,delayed 81 mg PO QAM 30 days #30 tabs 04/11/23 Rx release atorvastatin 40 mg tablet 40 mg PO DAILY 30 days #30 tabs 04/11/23 Rx clopidogrel 75 mg tablet 75 mg PO QAM 20 days #20 tabs 04/11/23 Rx Hospital Stay Data Consultations 04/09/23 13:35 ED Decision to Admit Stat 04/09/23 13:46 Consult Rheumatology Routine 04/09/23 15:49 Consult Neurology Routine Diagnostic Imagining Performed 04/09/23 11:44 CT angio head w con Stat CT angio neck with con Stat CT head/brain wo con Stat 04/09/23 15:49 MR brain wo con Routine 04/09/23 20:02 US venous doppler UE LT Stat Pending Results Patient Have Any Pending Studies at Discharge: No Discharge Instructions Given to Patient (Per Discharging Provider) PLEASE REFER TO YOUR NEW MEDICATION LIST AND FOLLOW INSTRUCTIONS CAREFULLY. YOUR NEW MEDICATIONS INCLUDE: ASPIRIN, LIPITOR- to be taken indefinitely PLAVIX- to be taken for 3 weeks PLEASE STOP YOUR CURRENT OCP AND DISCUSS OTHER ALTERNATIVES WITH YOUR OB-HARDNESS INSPECTOR PROVIDER. YOU NEED TO HAVE A ZIO PATCH HEART MONITOR. YOUR PRIMARY CARE PHYSICIAN CAN ARRANGE THIS FOR YOU. FOLLOW UP WITH PRIMARY CARE PHYSICIAN IN 1 WEEK. FOLLOW UP WITH NEUROLOGIST DR. OSBORNE IN 8 WEEKS. FOLLOW UP WITH MEDICAL RECORDS FIELD TECHNICIAN SCHEDULED. Total Time Total Time Spent Total Time Spent (In Minutes): > 30 minutes
--- NOTE | 2023-04-13 12:38 | Pharmacy Report ---
Pharmacist Stroke Counseling - Date of Service April 13, 2023 - Scope: Pharmacy has been consulted to provide medication discharge counseling for this patient admitted with CVA as per the Pharmacist Discharge Counseling for Stroke Patients Protocol. - Medications on Discharge: Home Medications Medication Instructions Recorded Confirmed hydroxychloroquine 200 mg tablet 200 mg PO HS 02/01/20 04/09/23 (Plaquenil) filgrastim-sndz 300 mcg/0.5 mL 2.5 mcg subcut Q2D 04/09/23 04/09/23 injection syringe (Zarxio) sertraline 50 mg tablet 50 mg PO HS 04/09/23 04/09/23 clindamycin phosphate 1 % topical 1 applic topical UD PRN Acne 04/13/23 04/13/23 gel Medication Instructions Recorded aspirin 81 mg tablet,delayed 81 mg PO QAM 30 days #30 tabs 04/11/23 release atorvastatin 40 mg tablet 40 mg PO DAILY 30 days #30 tabs 04/11/23 clopidogrel 75 mg tablet 75 mg PO QAM 20 days #20 tabs 04/11/23 - Action: The above medications, specifically ones for stroke treatment/prophylaxis, have been reviewed in detail with the patient and/or patient construction representative(s) prior to discharge. This includes indication, common adverse reactions, drug interactions, and medication administration. Medication counseling has been employed using the teach-back method to ensure understanding. - Outcome: The patient and/or patient construction representative(s) have demonstrated understanding of the medications. Additional comments: Talked with patient over the phone regarding medications at home. She is aware of aspirin/plavix combination therapy for possibly 3 weeks then aspirin thereafter alone. She reports they had told her that they will confirm this plan with her at her next neurology appt. She does confirm stopping her oral contraceptive with estrogen as advised on discharge. She reports that she has to schedule an appt with OBGYN to discuss alternative contraception. I did make patient aware that some of her medications are not safe in so it is really important that she has alternative method of contraception. I told her that if planning to get , to follow up with her provider to discuss medication changes beforehand. Patient aware. Advised patient to bring an updated medication list with her to her doctors appts. She has appt with PCP and rheumatology next week. No other pertinent positives during interview. Thank you for allowing pharmacy to be involved in the care of this patient. Please call [phone] with any additional questions
== END 2023-04-11 11:54 | disposition home or self-care (01) | DRG 65 ==
LOC: 2E 11:12 → ED 11:12 → SUATTDRO 14:30 → 2E 15:17